=== PATIENT | female | born 1945 | race Caucasian/White ===

== ENCOUNTER → 2023-11-14 08:53 | Outpatient (REF) | payer MEDICARE, BC, SELFPAY ==
[2023-11-14 12:01] LABS: ALT (SGPT) 22 U/L (0-35); AST (SGOT) 35 U/L (14-36); HDL Cholesterol 84 mg/dl; LDL Cholesterol, Calculated 45 mg/dl; Total Cholesterol 147 mg/dl (50-199); Triglyceride 91 mg/dl (10-149); Very Low Density Lipoprotein 18 mg/dl (0-30)
[2023-11-14 12:43] LABS: Vitamin B12 626 pg/ml (239-931)
== END ==
LOC: HWLAB 08:53
PROVIDERS: ATTENDING PHYSICIAN Nurse Practitioner Family
DX: E78.5 Hyperlipidemia, unspecified (principal); R29.818 Other symptoms and signs involving the nervous system
CPT/HCPCS: 36415; 80061; 82607; 84450; 84460

== ENCOUNTER 2024-04-25 06:08 | Day surgery (SDC) | payer MEDICARE, BC, SELFPAY ==
--- NOTE | 2024-04-09 09:22 | CM ---
Addendum entered by Sharee Vigil 04/18/24 09:53:
Spoke again with patient. She has obtained a commode and hip kit. Her walker does have wheels and she was reminded to bring it into the hospital on the day of surgery. She is now going to [facility] and has her first appointment scheduled for
Tuesday, 04/30 (she has a prescription for this).
Original Note:
Patient is scheduled for an elective L THR on 04/25/24- she is a same day patient. Spoke with patient prior to surgery. Introduced role of Orthopedic Navigator. Patient reports that she lives with her in a two story home. There are three
steps to enter and a flight of steps to the second floor. There is a powder room on the first floor. She currently functions independently. She has a cane and a walker (she is not sure if it has wheels). She has never had VN services. PCP is
Tien Medley.
Discussed orthopedic program and post surgical plans. Reviewed that she will have VN services initially (medicare.gov website and ratings reviewed) and will then start outpatient PT. Patient selects [facility]N (face sheet faxed to [facility]N to facilitate
confirmation of benefits) for her home care needs and will go to [facility] for outpatient PT.
Patient is in agreement with plan and states that her will be home with her.
Patient will complete online education.
Plan: Orthopedic Navigator will remain available to assist with the care of patient and will reassess discharge needs after surgery.
[2024-04-12 14:13] VITALS: BMI 24.5
[2024-04-12 14:45] LABS: Hematocrit 38.4 % (37.0-47.0); Hemoglobin 13.3 g/dL (12.0-16.0); Mean Corp Hgb Conc. 34.6 g/dL (33.0-37.0); Mean Corpuscular Hgb 31.3 pg (27.0-31.0); Mean Corpuscular Volume 90.4 fL (81.0-99.0); Mean Platelet Volume 9.9 fL (7.4-10.4); Platelet Count 200 10^3/uL (130-400); Red Blood Cell Count 4.25 10^6/uL (4.20-5.40); Red Cell Dist. Width 13.2 % (11.5-14.5)
[2024-04-12 15:14] LABS: ALT (SGPT) 21 U/L (0-35); AST (SGOT) 32 U/L (14-36); Albumin 4.7 g/dl (3.5-5.0); Alkaline Phosphatase 55 U/L (38-126); Blood Urea Nitrogen 20 mg/dl (7-17); Carbon Dioxide 27 mmol/L (22-30); Chloride 100 mmol/L (98-107); Estimated Creatinine Clearance 54 ml/min; Glucose 88 mg/dl (70-99); Potassium 4.7 mmol/L (3.5-5.1); Sodium 135 mmol/L (135-145); Total Protein 6.9 g/dl (6.3-8.2); eGFR > 60.00
[2024-04-13 09:59] LABS: Glycohemoglobin (HgbA1c) 5.4 % (4.0-5.6)
[2024-04-20 12:22] VITALS: BMI 24.5
[2024-04-25] VITALS (25 sets, daily range): BP systolic 94–155; BP diastolic 52–98; PULSE 54–56; O2SAT 100; BMI 24.5
[2024-04-25] MEDS: NORMOSOL-R 1000 IV ×2 (06:27→10:21)
[2024-04-25] MEDS: TYLENOL 650 MG PO (06:31)
[2024-04-25] MEDS: CELEBREX 200 MG PO (06:31)
[2024-04-25] MEDS: DILAUDID 0.25 MG IV (09:32)
[2024-04-25] MEDS: CYKLOKAPRON 1950 MG PO (10:26)
[2024-04-25] MEDS: ANCEF 5 IV (11:26)
[2024-04-25] MEDS: ROXICODONE 5 MG PO (12:15)
[2024-04-25] MEDS: COMPAZINE 10 MG IV (12:51)
[2024-04-25] MEDS: TORADOL 15 MG IV (15:05)
== END 2024-04-25 15:45 | disposition home or self-care (01) ==
LOC: SDS 06:08
PROVIDERS: ATTENDING PHYSICIAN Orthopaedic Surgery; FAMILY PHYSICIAN Nurse Practitioner Family; OTHER PHYSICIAN Internal Medicine Cardiovascular Disease
DX: M16.52 Unilateral post-traumatic osteoarthritis, left hip (principal)
CPT/HCPCS: 27130; C1713; 36415; 73502; 80053; 83036; 85027; 87070; 97116; 97161; 97530; C1776

== ENCOUNTER 2024-05-14 16:00 | Inpatient (IN) | payer MEDICARE, BC, SELFPAY ==
[2024-05-14] VITALS (10 sets, daily range): BP systolic 120–160; BP diastolic 70–82
--- NOTE | 2024-05-14 11:19 | ED.GENMED ---
History of Present Illness
General
Chief Complaint: Post Operative Problem(s)
Source: patient
Time Seen by Provider: 05/14/24 11:00
History of Present Illness
History of Present Illness:
79-year-old female status post hip replacement approximately 2-1/2 weeks ago presents emergency department with complaint left hip pain. She was standing with her cane, turned to the side and heard a 'sound' associated with pain and inability to
bear weight. Medics were called. Patient states she does not have pain unless she moves. She denies other complaints or injury.
Past History
Past History
ED Past Medical History: Other (Breast cancer)
Social History
Tobacco: Non-smoker
Alcohol: None
Drug: None
Personal:
Living: with family
Family History
Family History: Other (dad with mi @ 60 )
Phy Exam
Physical Exam
Physical Exam:
GENERAL: Alert , in no apparent distress
EYE: pupils equal and reactive
NECK: Supple, no significant adenopathy.
ENT: o/p clr, mmm.
CARDIAC: Regular rate and rhythm .
LUNGS: Clear breath sounds bilaterally, no acute respiratory distress, no wheezes/rales/rhonchi
ABDOMEN: Soft, without focal tenderness, no r/g, no cvat
NEUROLOGICAL: Alert and oriented, no focal neuro deficits
SKIN: Warm and dry, skin intact.
MUSCULOSKELETAL: No edema, well perfused. Left lower extremity shortened and slightly internally rotated, limited range of motion due to pain, neurovascularly intact, normal cap refill
PSYCH: Normal and appropriate interaction.
Course
Orders/Labs/Results
Orders:
Orders
05/14/24 11:17
Hip, Left 2-3 Views [CR Hip - LT w/wo Pel 2-3 Vw*] Urgent
Comment:
Reason For Exam: SUSPECT DISLOCATION
Include a pelvis x-ray?: Yes
05/14/24 11:18
Morphine Sulfate 4 mg IV NOW STA
05/14/24 13:10
Morphine Sulfate 4 mg IV NOW STA
05/14/24 14:44
Case Management Consult ONCE
Case Management Consult: Discharge Planning
PT Consult [Pt Eval And Treat] Urgent
Activity Level: With Assistance
Vital Signs
Initial and Last Documented VS:
Initial Vital Signs
Temp Pulse Resp BP Pulse Ox
98.2 F 64 16 145/78 99
05/14/24 11:01 05/14/24 11:01 05/14/24 11:01 05/14/24 11:01 05/14/24 11:01
Last Documented Vital Signs
Temp Pulse Resp BP Pulse Ox
98.2 F 64 16 138/80 96
05/14/24 11:01 05/14/24 11:01 05/14/24 11:01 05/14/24 12:00 05/14/24 12:15
Update Note
Update Note:
Patient presents to the Emergency Department with __left hip pain
Number and Complexity of Problems Addressed at the Encounter
� Chronic conditions affecting care:
� Acute Exacerbation and/or Progression of Chronic Illness:
� Differential Diagnosis includes: But not limited to strain, dislocation, fracture, etc.
Amount and/or Complexity of Data to be Reviewed and Analyzed
� I performed an independent evaluation of and my interpretation is:
EKG:
CT:
Xrays: Greater troches fracture, new, no dislocation
Laboratory Studies:
Other:
� Review of other/old records reveals:
� Clinical information was obtained by an independent historian:
� Prescriptions/Medications Considered but not given:
� Further testing considered but not performed:
Risk of Complications and/or Morbidity or Mortality of Patient Management
� Social determinants of health affecting care:
� Discussion with other providers (PCP, Hospitalists, Consultants, etc):
� Escalation of care including admission/observation vs risk of discharge considered: 2:45 PM Case discussed with orthopedics, Dr. Damien Cifuentes, x-rays reviewed, new troches fracture noted. Recommendations are nonoperative
toe-touch weightbearing. Aware patient will need to be admitted/unable to go home given level of pain, recommend hospitalist, he has been notified. In meantime case management and PT also notified.
ED Attending Note
-
Portions of this chart may have been created with voice recognition software.� Occasional wrong word or��sound alike� substitutions may have occurred due to the inherent limitations of voice recognition software.
Discharge Plan
Departure
Patient Disposition: Admit
Date of Disposition: 05/14/24
Time of Disposition: 14:44
Admit to: Med/Surg
Presentation/result/management discussed w/ accepting MD/DO: Hospitalist
Condition: Fair
Discharge Problem:
Closed hip fracture
Prescriptions:
No Action
biotin 5 MG capsule
5 mg PO DAILY
multivitamin with folic acid [Tab-A-Katelyn] 1 TABLET tablet
1 tab PO DAILY
rosuvastatin 10 mg Tablet
10 mg PO HS
zoledronic ekgp-akzwcbmk-akbvc [Reclast] 5 mg/100 mL Piggyback
5 mg IV DIRECTED
Rx Instructions:
Annual Infusion;
Next dose 06/2024
cholecalciferol (vitamin D3) [Vitamin D3] 125 mcg (5,000 unit) Tablet
125 mcg PO DAILY
Aimovig Autoinjector 140 mg/mL Auto-Injector
140 mg SC QMONTH
aspirin 325 mg Tablet
325 mg PO DAILY
Patient Comments:
*
ondansetron HCl 4 mg Tablet
4 mg PO Q6H PRN (Reason: post-op nausea)
Patient Comments:
*
dexamethasone 4 mg Tablet
4 mg PO Q12H
Patient Comments:
*
mupirocin 2 % Ointment
1 applic TOPICAL BID
Patient Comments:
started treatment tuesday04/22/24 and completed BID
celecoxib 100 mg Capsule
100 mg PO BID
Patient Comments:
*
oxycodone 5 mg Tablet
5 - 10 mg PO Q6H PRN (Reason: post-op pain)
Patient Comments:
*
acetaminophen 500 mg Tablet
500 mg PO Q6H PRN (Reason: pain)
sennosides [senna] 8.6 mg tablet
17.2 mg PO BID 10 Days Qty: 40 0RF
docusate sodium [Colace] 100 mg capsule
200 mg PO BID 10 Days Qty: 40 0RF
metoprolol succinate 25 mg Tablet Extended Release 24 Hr
25 mg PO HS Qty: 0 0RF
Rx Instructions:
Hold for systolic pressure < 120, diastolic pressure < 80
Referrals:
Max Medley CRNP [Family Provider] -
Interventions
Interventions:
*Risk Screen - Suicide Last Done: 05/14/24 11:06
*Neglect/Abuse Screening Last Done: 05/14/24 11:06
*ED COVID-19 Vaccine History Last Done: 05/14/24 11:01
ED-Skin Assessment Last Done: 05/14/24 12:00
Discharge Date and Time
Print Language: THAI
[2024-05-14] MEDS: MORPHINE SULFATE 4 MG IV ×3 (11:23→16:39)
--- NOTE | 2024-05-14 14:41 | CON.ORTHO ---
Consultation
-
Date/Time Consultation Requested: 05/14/2024; time unknown
Date/Time Consultation Performed: 05/14/2024; 1430
Requesting Provider: Dr. Sara Culver
Performing Provider: Dottie Cabrera PA-C for Dr. Joe Mcneill
Reason for Consultation: Left periprosthetic greater trochanter fracture
Consultation - Orthopedics
History
Ms. Alonzo is a 79 yo F with PMH of osteoporosis, known to me, 2 weeks status post left total hip arthroplasty. She was doing well in her recovery over the last few weeks, but noticed increased pain in her hip over the last few days. She reports
she turned to move away from her bathroom counter top this morning when she felt a pop in her hip, and experienced immediate onset of pain. She was unable to bear weight on the left thereafter. She presented to ED via EMS where x-rays revealed a
periprosthetic greater trochanter fracture. She is resting comfortably in bed at present, but does endorse lateral pain with movement of the hip. She is accompanied by her today.
Allergies / Home Medications
Allergy/AdvReac Type Severity Reaction Status Date / Time
Penicillins Allergy Unknown Hematuria Verified 04/25/24 06:09
latex Allergy Oral and Verified 04/25/24 06:09
Throat
lesions
�Medication �Instructions �Recorded
biotin 5 mg capsule 5 mg PO DAILY 10/08/16
multivitamin with folic acid 400 1 tab PO DAILY 10/08/16
mcg tablet (Tab-A-Katelyn)
cholecalciferol (vitamin D3) 125 125 mcg PO DAILY 04/20/24
mcg (5,000 unit) tablet (Vitamin
D3)
erenumab-aooe 140 mg/mL 140 mg SC QMONTH 04/20/24
subcutaneous auto-injector
(Aimovig Autoinjector)
rosuvastatin 10 mg tablet 10 mg PO HS 04/20/24
zoledronic acid 5 mg/100 mL in 5 mg IV DIRECTED 04/20/24
mannitol 5 %-water intravenous
piggybck (Reclast)
aspirin 325 mg tablet 325 mg PO DAILY post-op 04/24/24
celecoxib 100 mg capsule 100 mg PO BID post-op; with food 04/24/24
dexamethasone 4 mg tablet 4 mg PO Q12H post-op for 3 days 04/24/24
mupirocin 2 % topical ointment 1 applic topical BID 04/24/24
ondansetron HCl 4 mg tablet 4 mg PO Q6H PRN post-op nausea 04/24/24
oxycodone 5 mg tablet 5 - 10 mg PO Q6H PRN post-op pain 04/24/24
acetaminophen 500 mg tablet 500 mg PO Q6H PRN pain 04/25/24
docusate sodium 100 mg capsule 200 mg (2 x 100 mg) PO BID 10 days 04/25/24
(Colace) #40 caps
metoprolol succinate 25 mg 25 mg PO HS #0 tabs 04/25/24
tablet,extended release 24 hr
sennosides 8.6 mg tablet (senna) 17.2 mg (2 x 8.6 mg) PO BID 10 04/25/24
days #40 tabs
Vital Signs / Lab Results
Temp Pulse Resp BP Pulse Ox
98.2 F 64 16 138/80 96
05/14/24 11:01 05/14/24 11:01 05/14/24 11:01 05/14/24 12:00 05/14/24 12:15
XR Left Hip 05/14/2024 Impression:
1. ACUTE OBLIQUELY ORIENTED NONDISPLACED FRACTURE of the LEFT GREATER TROCHANTER located at the site of a cerclage band surrounding the intertrochanteric proximal femur.
2. Left total hip arthroplasty in place.
Directed exam of the left lower extremity reveals healing surgical incision without signs of erythema, drainage or dehiscence. Expected post-operative edema and ecchymosis about the left hip. Tenderness to palpation over the greater trochanter. Pain
with movement of the hip. Calf soft and nontender. Patient able to wiggle toes, plantar and dorsiflex ankle. Neurovascularly intact distally.
Assessment / Plan
Left periprosthetic greater trochanter fracture; recent total hip arthroplasty under the direction of Dr. Baez
--Unfortunately, Ms. Alonzo sustained a periprosthetic greater trochanter fracture. Thankfully, her RHYS remains well fixed, and the fracture is in appropriate alignment to proceed with non-operative management. Patient may have diet.
--Recommend TDWB to LLE with walker. Maintain posterior THPs. We appreciate input from PT/OT.
--Patient may benefit from SNF placement. Recommend case management consult.
--Pain controlled with current regimen. Transition to oral medications when able.
--ASA 325 mg daily for DVT ppx.
--Please reach out with any additional orthopedic questions or concerns. Orthopedics will continue to follow along for now.
--- NOTE | 2024-05-14 15:18 | HPS.HSE ---
Family Physician
-
Family Physician: DUSTIN Irene
Chief Complaint
-
Left hip pain with inability to bear weight
History of Present Illness
79-year-old female who reports she was standing with her cane when she turned to her side and heard a sound associated with pain in her left hip with inability to bear weight. In the ER she was noted to have a left trochanteric fracture. She
reports pain in her left hip during my exam status post physical therapy and manipulation extension of left leg.
She is status post conversion of previous surgery left total hip arthroplasty with removal of buried implant screws and left hip 04/25/[address] Baez.
She denies headache, neck pain, fever, chills, chest pain, palpitations, shortness breath, cough, abdominal pain, nausea, vomit, diarrhea, urinary symptoms.
She has past medical history asthma, HTN, HLD, breast cancer bilateral mastectomy 2012 with reconstructive repair/BRCA gene positive, dilated aortic root, fracture left hip 2003 with repair, anxiety, osteoporosis, GERD,
Medical History
Past Medical History
Past Medical History: Reports Other
Additional Past Medical History:
asthma as child
breast cancer bilateral mastectomy 2012 with reconstructive repair/BRCA gene positive,
dilated aortic root 2.9 cm per pt
fracture left hip 2003 with repair
anxiety
osteoporosis
GERD
Past Surgical History: Reports Other
Additional Past Surgical History:
Laparoscopic incarcerated left lower quadrant hernia repair
Sinus surgery
Bilateral salpingo oophorectomy
Breast cancer with bilateral mastectomy 2012 and reconstructive repair
Social History
Tobacco: Non-smoker
Alcohol: Occasional
Drug: None
Personal:
Living: With Family ()
Employment: Retired
Family History
Family History: Other (Father leukemia, Hx [place], mother history of HLD)
Allergies / Home Medications
Allergies reflects when Allergies were last updated in [employer].
Home Medications with original date entered in [employer]
Allergy/Medication List:
Allergies
Allergy/AdvReac Type Severity Reaction Status Date / Time
Penicillins Allergy Unknown Hematuria Verified 04/25/24 06:09
latex Allergy Oral and Verified 04/25/24 06:09
Throat
lesions
Home Medications
erenumab-aooe 140 mg/mL subcutaneous auto-injector (Aimovig Autoinjector) 140 mg SC QMONTH 04/20/24
rosuvastatin 10 mg tablet 10 mg PO HS 04/20/24
aspirin 325 mg tablet 325 mg PO DAILY post-op 04/24/24
metoprolol succinate 25 mg tablet,extended release 24 hr 25 mg PO HS #0 tabs 04/25/24
ibuprofen 200 mg tablet (Advil) 200 mg PO Q6HPRN PRN mild pain 05/14/24
Review of Systems
-
History Source: Patient and Family ()
A 12 point ROS was completed and negative except as noted: Yes
Constitutional: Denies Fever or Chills
EENT: Denies Sore Throat or Runny Nose
Respiratory: Denies Cough or Trouble Breathing
Cardiac: Denies Chest Pain, Diaphoresis, Palpitations or Syncope
Abdomen/GI: Denies Abdominal Pain, Nausea, Vomiting, Diarrhea, Constipated, Bloody Stools or Black Stools
: Denies Dysuria, Frequency, Flank Pain, Incontinence or Difficulty Voiding
Musculoskeletal: Reports Joint Pain (Left hip); Denies Edema
Skin: Reports Other (Left hip postsurgical site intact no surrounding erythema or drainage); Denies Itching or Rash
Neurological: Denies Dizzy or Headache
Endocrine: Reports No Symptoms
Hematologic/Lymphatic: Reports No Symptoms
Psych: Reports Calm
Physical Exam
Vital Signs
Vital Signs
Temp Pulse Resp BP Pulse Ox
98.2 F 64 16 138/80 96
05/14/24 11:01 05/14/24 11:01 05/14/24 11:01 05/14/24 12:00 05/14/24 12:15
Physical Exam
General: Pain (Post physical therapy manipulation of leg); No Fever or Chills
HEENT: NormoCephalic, Anicteric, Moist mucous membranes, PERRLA, [place] Conjunctivae and No Ptosis
Respiratory: Clear; No Wheezes, Rales or Rhonchi
Cardiac: S1/S2 and Regular Rhythm; No Murmur, Rub, Gallop or Peripheral Edema
GI: Soft, Non Tender, Non Distended, Normal Bowel Sounds and No Hepatosplenomegaly
Rectal: Deferred by Provider
Genito-urinary: Deferred by me
Musculoskeletal: No Clubbing, No Cyanosis, No Edema and Other (Left hip postsurgical site intact no surrounding erythema or drainage)
Skin: Warm and Dry; No Rash
Neuro: AO x 3, Nonfocal/grossly intact, Cranial Nerves Intact and No Sensory Deficits; No Slurred Speech, Facial Droop or Tremors
Psych: Calm
Data Reviewed
-
Diagnostic Radiology: Report Reviewed by me
Lab Data: Labs Reviewed by me
Impression/Plan
-
Impression/plan:
Admit to [facility]
# Atraumatic�new left trochanteric fracture left hip patient status post left hip revision total hip arthroplasty 04/25/[address] Baez
#Hx fracture left hip 2003 with repair
-Nonoperative per Ortho
-Consult Ortho
-Pain control Tylenol,oxycodone, mod pain, morphine severe pain, as needed bowel regimen
-Weight-bear with walker
-PT/OT/case management consult for SNF placement
-Aspirin 325 for DVT prophylaxis
-Check CBC with differential, CMP on admit
X-ray left hip 05/14/2024: Acute nondisplaced fracture of the left greater trochanter located at the site of a cerclage band surrounding the intertrochanteric proximal femur
Left total hip arthroplasty in place
#HTN�benign
-BP 138/80
-Continue metoprolol succinate 25 mg at bedtime
#HLD
-Continue Crestor 10 mg at bedtime
#Asthma as Child -no acute exacerbation
-No reported inhalers
#Anxiety
-No reported meds
#Osteoporosis
- Gets Yearly Reclast injection is due June 2024
#GERD
-No reported meds
#Headaches
Gets monthly aimovig
Other PMH:
Breast cancer bilateral mastectomy 2012 with reconstructive repair/BRCA gene positive
Dilated aortic root 2.9 cm according to pt
DVT prophylaxis
Aspirin 325 mg daily
Full code
[2024-05-14] MEDS: ROXICODONE 5 MG PO ×2 (16:38→21:02)
[2024-05-14] MEDS: ZOFRAN 4 MG IV (16:39)
--- NOTE | 2024-05-14 17:25 | PTCARENOTE ---
Pt received from the Ed via stretcher. Transport was w/o incident. Pt is AAOX3, HRR, lungs are clear. Left hip with 1+ Edema, Bruised and sl internally rotated. Vss, pt is afebrile, Pt and Pt's instructed on plan of care. Both Pt and
verbalized understanding of instructions. [facility] is within reach.
--- NOTE | 2024-05-14 17:33 | W.PN.UPDATE ---
Update Note
Progress Note Update
This note serves as an addendum to the H&P by DUSTIN Walls, May 14, 2024.
History of Presenting Illness
79-year-old female with past medical history of asthma, HTN, HLD, breast cancer bilateral mastectomy 2012 with reconstructive repair/BRCA gene positive, dilated aortic root, fracture left hip 2003 with repair, anxiety, osteoporosis and GERD,
presented after pain in her left hip. In the ER she was noted to have a left trochanteric fracture. She is status post conversion of previous surgery left total hip arthroplasty with removal of buried implant screws and left hip 04/25/2024 by
Sasha.
Physical Exam
General: Not in acute distress
HEENT: Normocephalic, Moist mucous membranes
Respiratory: CTAB
Cardiac: S1/S2 and Regular Rhythm
GI: Soft, Non Tender, Non Distended, Normal Bowel Sounds
Musculoskeletal: No Cyanosis, No Edema and Other (Left hip postsurgical site intact no surrounding erythema or drainage). Severe pain with any movement of the LLE.
Skin: Warm and Dry
Neuro: AAO x 3, Nonfocal/grossly intact, Cranial Nerves Intact and No Sensory Deficits
Psych: Calm
Assessment/Plan
# Atraumatic�new left trochanteric fracture left hip patient status post left hip revision total hip arthroplasty 04/25/[address] Baez
#Hx fracture left hip 2003 with repair
-Nonoperative per Ortho
-Consult Ortho, recommendations appreciated ortho recommended TDWB to LLE with walker and to maintain posterior THPs.
-Pain control Tylenol,oxycodone, dilaudid
-Monitor for any constipation
-Weight-bear with walker
-PT/OT/case management consult for SNF placement
-Aspirin 325 for DVT prophylaxis
-Check labs: CBC with differential, CMP on admit
#HTN�benign
-BP 138/80
-Continue metoprolol succinate 25 mg at bedtime
#HLD
-Continue Crestor 10 mg at bedtime
#Asthma as Child -no acute exacerbation
-No reported inhalers
#Anxiety
-No reported meds
#Osteoporosis
- Gets Yearly Reclast injection is due June 2024
#GERD
-No reported meds
#Headaches
Gets monthly aimovig
Other PMH:
Breast cancer bilateral mastectomy 2012 with reconstructive repair/BRCA gene positive
Dilated aortic root 2.9 cm according to pt
DVT prophylaxis
Aspirin 325 mg daily
Full code
[2024-05-14] MEDS: LIDOCAINE 4% PATCH 1 PATCH TOPICAL (18:30)
[2024-05-14] MEDS: TYLENOL 1000 MG PO ×2 (18:31→23:04)
[2024-05-14 18:34] LABS: % Basophils 0.4 % (0-2); % Immature Granulocytes 0.3 % (0-0.5); % Lymphocytes 5.9 % (20.5-51.1); % Monocytes 4.7 % (1.7-9.3); % Neutrophils 87.7 % (42.2-75.2); Absolute Eosinophils 0.1 10^3/uL (0-0.7); Absolute Lymphocytes 0.5 10^3/uL (1.2-3.4); Absolute Monocytes 0.4 10^3/uL (0.1-0.6); Absolute Neutrophils 6.9 10^3/uL (1.4-6.5); Hemoglobin 10.7 g/dL (12.0-16.0); Mean Corp Hgb Conc. 34.5 g/dL (33.0-37.0); Mean Corpuscular Hgb 30.9 pg (27.0-31.0); Mean Corpuscular Volume 89.6 fL (81.0-99.0); Mean Platelet Volume 8.6 fL (7.4-10.4); Nucleated Red Blood Cells % 0 %; Platelet Count 277 10^3/uL (130-400); Red Blood Cell Count 3.46 10^6/uL (4.20-5.40); Red Cell Dist. Width 13.4 % (11.5-14.5); White Blood Cell Count 7.9 10^3/uL (4.8-10.8)
[2024-05-14 18:49] LABS: ALT (SGPT) 25 U/L (0-35); AST (SGOT) 33 U/L (14-36); Albumin 2.5 g/dl (3.5-5.0); Alkaline Phosphatase 102 U/L (38-126); Blood Urea Nitrogen 20 mg/dl (7-17); Calcium 9.3 mg/dl (8.4-10.2); Carbon Dioxide 24 mmol/L (22-30); Chloride 103 mmol/L (98-107); Estimated Creatinine Clearance 54 ml/min; Glucose 109 mg/dl (70-99); Potassium 3.9 mmol/L (3.5-5.1); Sodium 133 mmol/L (135-145); Total Bilirubin 0.8 mg/dl (0.2-1.3); eGFR > 60.00
[2024-05-14] MEDS: CRESTOR 10 MG PO (21:01)
[2024-05-14] MEDS: TOPROL XL 25 MG PO (21:02)
[2024-05-15] MEDS: ROXICODONE 5 MG PO ×3 (01:55→20:40)
[2024-05-15 02:09] LABS: Urine Albumin Negative (Neg - Trace); Urine Bilirubin Negative (Negative); Urine Character Clear (Clear); Urine Color Yellow; Urine Glucose Negative (Negative); Urine Ketone 1+ (Negative); Urine Leukocyte Negative (Negative); Urine Nitrite Negative (Negative); Urine Occult Blood Negative (Negative); Urine Specific Gravity 1.015 (<1.030); Urine Urobilinogen Negative (Neg - 1+); Urine pH 6.5 (5.0-9.0)
[2024-05-15] MEDS: DILAUDID 0.5 MG IV (05:27)
--- NOTE | 2024-05-15 06:57 | W.PN.UPDATE ---
Update Note
Progress Note Update
Patient seen and evaluated by orthopedic surgery this morning. She is lying comfortably in bed, does not appear to be in any acute distress. She does report increased pain with movement.
A & P: Left periprosthetic greater trochanteric fracture; recent total hip arthroplasty under the direction of Dr. Baez.
- Recommend TDWB to LLE with walker. Maintain posterior THPs. We appreciate input from PT/OT. Avoid active abduction and passive adduction.
- Patient may benefit from SNF placement. Recommend case management consult.
- Pain control per primary team.
- ASA 325mg daily for DVT ppx.
- Orthopedic surgery will continue to follow along while in house.
[2024-05-15 07:37] VITALS: BP 113/60
[2024-05-15 08:34] LABS: % Basophils 0.2 % (0-2); % Eosinophils 1.9 % (0-6); % Immature Granulocytes 0.5 % (0-0.5); % Lymphocytes 12.9 % (20.5-51.1); % Monocytes 7.4 % (1.7-9.3); % Neutrophils 77.1 % (42.2-75.2); Absolute Eosinophils 0.1 10^3/uL (0-0.7); Absolute Lymphocytes 0.8 10^3/uL (1.2-3.4); Absolute Monocytes 0.5 10^3/uL (0.1-0.6); Absolute Neutrophils 4.9 10^3/uL (1.4-6.5); Hematocrit 28.4 % (37.0-47.0); Hemoglobin 9.8 g/dL (12.0-16.0); Mean Corp Hgb Conc. 34.5 g/dL (33.0-37.0); Mean Corpuscular Hgb 31.4 pg (27.0-31.0); Mean Platelet Volume 9.3 fL (7.4-10.4); Nucleated Red Blood Cells % 0 %; Platelet Count 264 10^3/uL (130-400); Red Blood Cell Count 3.12 10^6/uL (4.20-5.40); Red Cell Dist. Width 13.9 % (11.5-14.5); White Blood Cell Count 6.4 10^3/uL (4.8-10.8)
[2024-05-15] MEDS: ASPIRIN 325 MG PO (08:39)
[2024-05-15] MEDS: TYLENOL 1000 MG PO ×3 (08:39→23:17)
[2024-05-15] MEDS: LIDOCAINE 4% PATCH 1 PATCH TOPICAL (08:40)
[2024-05-15 08:53] LABS: Blood Urea Nitrogen 23 mg/dl (7-17); Calcium 8.9 mg/dl (8.4-10.2); Carbon Dioxide 22 mmol/L (22-30); Chloride 100 mmol/L (98-107); Estimated Creatinine Clearance 64 ml/min; Glucose 102 mg/dl (70-99); Potassium 4.2 mmol/L (3.5-5.1); Sodium 130 mmol/L (135-145); eGFR > 60.00
--- NOTE | 2024-05-15 10:31 | CM ---
Addendum entered by Amelia Blandon 05/15/24 15:23:
Patient seen with spouse, discussed PT/OT recommending SNF. [facility]ing referrals to [facility], [facility], [facility], [facility], [facility]. [facility].
Plan; SNF pending accepting facility.
Original Note:
Patient seen bedside, initial assessment completed. Patient reports she lives with her in a two story home, 3 steps to enter, full flight up stairs up to bedroom/full bathroom, powder room on first floor. Patient reports she is about 2.5
weeks post hip replacement, was working with [facility] and then going to outpatient therapy [facility]. Patient reports she was using a walker and cane post surgeryu, previously did not use any DME and was very active. Patient tearful
throughout assessment, would like to return home with services but aware that will likely need rehab. Patient provided with local SNF resources. Patient PCP Max Medley, pharmacy [facility], confirms prescription coverage.
Patient denies food, housing/utility, transportation insecurities at home. CM will watch for PT/OT recommendations for discharge plans.
Plan; will depend on PT/OT evals.
[2024-05-15 11:38] VITALS: BP 163/76; PULSE 70
[2024-05-15 11:40] VITALS: BP 163/76; PULSE 61
--- NOTE | 2024-05-15 11:48 | W.PN.HOSP.TC ---
Today's Communication/Plan
-
Pain control
PT/OT
SNF Placement
Assessment / Plan
Assessment / Plan
Physical Exam
General: Not in acute distress
HEENT: Normocephalic, Moist mucous membranes
Respiratory: CTAB
Cardiac: S1/S2 and Regular Rhythm
GI: Soft, Non Tender, Non Distended, Normal Bowel Sounds
Musculoskeletal: No Cyanosis, No Edema. Severe pain with any movement of the LLE.
Skin: Warm and Dry
Neuro: AAO x 3, Nonfocal/grossly intact, Cranial Nerves Intact and No Sensory Deficits
Psych: Calm
Assessment/Plan
#Left periprosthetic greater trochanteric fracture; recent total hip arthroplasty under the direction of Dr. Baez.
#Hx fracture left hip 2003 with repair
-Nonoperative per Ortho
-Consult Ortho, recommendations appreciated
-Recommend TDWB to LLE with walker. Maintain posterior THPs. We appreciate input from PT/OT. Avoid active abduction and passive adduction.
-Pain control Tylenol, Oxycodone, Dilaudid
-Monitor for any constipation
-Weight-bear with walker
-PT/OT/case management consult for SNF placement
-Aspirin 325 for DVT prophylaxis
-SNF placement
-ASA 325mg daily for DVT prophylaxis
#HTN�benign
-BP 138/80
-Continue metoprolol succinate 25 mg at bedtime
#HLD
-Continue Crestor 10 mg at bedtime
#Asthma as Child -no acute exacerbation
-No reported inhalers
#Anxiety
-No reported meds
#Osteoporosis
- Gets Yearly Reclast injection is due June 2024
#GERD
-No reported medications
#Headaches
Gets monthly aimovig
Other PMH:
Breast cancer bilateral mastectomy 2012 with reconstructive repair/BRCA gene positive
Dilated aortic root 2.9 cm according to pt
DVT Prophylaxis: Aspirin 325 mg daily
Code Status: Full code
Anticipated Discharge: Within 24 hours
Subjective/Interval History
-
Date of Service: May 15, 2024
Patient was seen and examined. She reported continued severe pain in her left leg with any kind of movement.
Objective Data
-
Labs:
Laboratory Results
05/15/24
06:46
WBC 6.4
Hgb 9.8 L
Hct 28.4 L
Plt Count 264
Sodium 130 L
Potassium 4.2
Chloride 100
Carbon Dioxide 22
BUN 23 H
Creatinine 0.6
Glucose 102 H
Calcium 8.9
Vital Signs:
Vital Signs
Temp Pulse Resp BP Pulse Ox
98.5 F 56 17 113/60 96
05/15/24 07:37 05/15/24 07:37 05/15/24 07:37 05/15/24 07:37 05/15/24 07:37
I&O
05/14/24 05/15/24 05/16/24
06:59 06:59 06:59
Intake Total 480 / 480
Output Total 500 / 500
Balance -20 / -20
--- NOTE | 2024-05-15 13:54 | PN.CDI ---
CDI
- -
CDI:
Physician Documentation Request
Admit Date: 05/14/24 16:00
Dear Doctor Kina,
Clinical Indicators:
Patient admitted with Left periprosthetic greater trochanteric fracture.
Sodium levels:
05/14/24 05/15/24
18:18 06:46
Sodium 133 L 130 L
Based on the above, could you clarify in the progress notes, the appropriate diagnosis, if significant, that supports the above abnormalities and additional evaluation, monitoring and/or treatment rendered:
Hyponatremia
Abnormal lab value, clinically insignificant
Other
Use of terms such as suspected, likely, concern for, or probable (associated with a specific diagnosis that is being evaluated, monitored, or treated as if it exists) are acceptable and can be coded in the inpatient setting, when documented at the
time of discharge.
Thank you,
Rebecca Echevarria RN BSN
CDI Specialist
available via tiger text
Please use your independent medical judgment in providing your response.
--- NOTE | 2024-05-15 14:13 | PN.CDI ---
CDI
- -
CDI:
Physician Documentation Request
Admit Date: 05/14/24 16:00
Dear Doctor Kina,
Clinical Indicators:
Patient admitted with Left periprosthetic greater trochanteric fracture.
05/14 H & P, 'Atraumatic�new left trochanteric fracture left hip patient'
05/14 Ortho consult, 'She reports she turned to move away from her bathroom counter top this morning when she felt a pop in her hip, and experienced immediate onset of pain. She was unable to bear weight on the left thereafter.'
05/15 PN, 'Osteoporosis- Gets Yearly Reclast injection is due June 2024'
Please clarify the etiology of the left periprosthetic greater trochanter fracture:
Pathologic due to osteoporosis
Atraumatic only
Other
Use of terms such as suspected, likely, concern for, or probable (associated with a specific diagnosis that is being evaluated, monitored, or treated as if it exists) are acceptable and can be coded in the inpatient setting, when documented at the
time of discharge.
Thank you,
Rebecca Echevarria RN BSN
CDI Specialist
available via tiger text
Please use your independent medical judgment in providing your response.
[2024-05-15 15:13] VITALS: BP 122/69
[2024-05-15] MEDS: ZOFRAN 4 MG IV (17:27)
[2024-05-15] MEDS: DILAUDID IV (20:02)
[2024-05-15] MEDS: CRESTOR 10 MG PO (21:49)
[2024-05-15] MEDS: TOPROL XL 25 MG PO (21:49)
[2024-05-15 23:54] VITALS: BP 134/64
[2024-05-16] MEDS: DILAUDID IV (00:31)
[2024-05-16] MEDS: DILAUDID 0.5 MG IV ×2 (01:02→07:49)
[2024-05-16 07:15] VITALS: BP 123/60
[2024-05-16] MEDS: TYLENOL 1000 MG PO ×2 (07:51→23:08)
[2024-05-16] MEDS: ASPIRIN 325 MG PO (07:52)
[2024-05-16] MEDS: LIDOCAINE 4% PATCH 1 PATCH TOPICAL (07:52)
--- NOTE | 2024-05-16 08:54 | W.PN.UPDATE ---
Update Note
Progress Note Update
Pt seen this AM. No significant changes. Left periprosthetic greater trochanteric fracture; recent total hip arthroplasty under the direction of Dr. Baez.
- Recommend TDWB to LLE with walker. Maintain posterior THPs. We appreciate input from PT/OT. Avoid active abduction and passive adduction.
- Patient may benefit from SNF placement. Recommend case management consult.
- Pain control per primary team.
- ASA 325mg daily for DVT ppx.
- Orthopedic surgery will continue to follow along while in house.
--- NOTE | 2024-05-16 11:42 | W.PN.HOSP.TC ---
Today's Communication/Plan
-
Pain control
PT/OT
Placement
Assessment / Plan
Assessment / Plan
Physical Exam
General: Not in acute distress
HEENT: Normocephalic, Moist mucous membranes
Respiratory: CTAB
Cardiac: S1/S2 and Regular Rhythm
GI: Soft, Non Tender, Non Distended, Normal Bowel Sounds
Musculoskeletal: No Cyanosis, No Edema. Severe pain with any movement of the LLE.
Skin: Warm and Dry
Neuro: AAO x 3, Nonfocal/grossly intact, Cranial Nerves Intact and No Sensory Deficits
Psych: Calm
Assessment/Plan
#Left periprosthetic greater trochanteric fracture; recent total hip arthroplasty under the direction of Dr. Baez.
#Hx fracture left hip 2003 with repair
-Nonoperative per Ortho
-Consult Ortho, recommendations appreciated
-Recommend TDWB to LLE with walker. Maintain posterior THPs. PT/OT. Avoid active abduction and passive adduction.
-Pain control Tylenol, Oxycodone, Dilaudid
-Monitor for any constipation
-Weight-bear with walker
-PT/OT/case management consult for SNF placement
-Aspirin 325 for DVT prophylaxis
-SNF placement
-ASA 325mg daily for DVT prophylaxis
#HTN�benign
-BP 138/80
-Continue metoprolol succinate 25 mg at bedtime
#HLD
-Continue Crestor 10 mg at bedtime
#Asthma as Child -no acute exacerbation
-No reported inhalers
#Anxiety
-No reported meds
#Osteoporosis
- Gets Yearly Reclast injection is due June 2024
#GERD
-No reported medications
#Headaches
Gets monthly aimovig
Other PMH:
Breast cancer bilateral mastectomy 2012 with reconstructive repair/BRCA gene positive
Dilated aortic root 2.9 cm according to pt
DVT Prophylaxis: Aspirin 325 mg daily
Code Status: Full code
Anticipated Discharge: Within 24 hours
Subjective/Interval History
-
Date of Service: May 16, 2024
Patient was seen and examined. She reported urinating better today. Her pain is still severe with any movement.
Objective Data
-
Vital Signs:
Vital Signs
Temp Pulse Resp BP Pulse Ox
97.6 F 74 16 123/60 97
05/16/24 07:15 05/16/24 07:15 05/16/24 07:15 05/16/24 07:15 05/16/24 07:15
I&O
05/15/24 05/16/24 05/17/24
06:59 06:59 06:59
Intake Total 480 / 480 1080 / 1080
Output Total 500 / 500 600 / 600
Balance -20 / -20 480 / 480
[2024-05-16 12:21] VITALS: BP 120/76; PULSE 67; O2SAT 99
[2024-05-16] MEDS: MIRALAX PO (13:04)
--- NOTE | 2024-05-16 13:34 | CM ---
Reviewed PT OT with pt . She agrees she needed rehab .
She asked about [facility]. Spoke with Lamonte at [facility] she is not appropriate due to TDWB .
Pt requested SNf referals for [facility] , [facility]. All placed in care port.
PLAN Pt to SNF after located
[2024-05-16] MEDS: ROXICODONE 2.5 MG PO ×3 (13:35→21:41)
[2024-05-16] MEDS: ZOFRAN 4 MG IV ×2 (13:35→21:39)
[2024-05-16 14:12] VITALS: BP 120/76
[2024-05-16 15:10] VITALS: BP 126/71
[2024-05-16] MEDS: TYLENOL PO (16:12)
[2024-05-16] MEDS: CRESTOR 10 MG PO (21:25)
[2024-05-16] MEDS: TOPROL XL 25 MG PO (21:25)
[2024-05-16] MEDS: SENOKOT-S 1 TABLET PO (21:25)
[2024-05-16 23:00] VITALS: BP 113/65
[2024-05-17] MEDS: DILAUDID 2 MG PO ×3 (05:10→16:12)
[2024-05-17] MEDS: ZOFRAN 4 MG IV (06:33)
[2024-05-17] MEDS: DILAUDID 1 MG IV (06:35)
[2024-05-17 07:03] VITALS: BP 114/64
[2024-05-17] MEDS: TYLENOL 1000 MG PO ×2 (08:00→16:12)
[2024-05-17] MEDS: ASPIRIN 325 MG PO (08:00)
[2024-05-17] MEDS: SENOKOT-S 1 TABLET PO (08:00)
[2024-05-17] MEDS: MIRALAX 17 GRAMS PO (08:01)
[2024-05-17] MEDS: LIDOCAINE 4% PATCH 1 PATCH TOPICAL (08:01)
--- NOTE | 2024-05-17 08:28 | W.PN.UPDATE ---
Update Note
Progress Note Update
Patient reports difficult time with pain management overnight. Feels as though she went too long in between her medication doses. Received IV Dilaudid, which did help her discomfort. Will switch pain medication to Dilaudid every 4 hours scheduled
rather than as needed. She will remain TDWB with walker. Continue with PT/OT, but no active abduction or passive adduction. Per PT/OT, SNF has been recommended. She does not qualify for [facility], so appreciate case management efforts in finding a
facility. Will continue to follow while inpatient. Will need follow-up x-ray in 1 week to rule out fracture displacement.
--- NOTE | 2024-05-17 11:40 | W.PN.HOSP.TC ---
Today's Communication/Plan
-
Discharge today if acute rehab/SNF bed available
Assessment / Plan
Assessment / Plan
Physical Exam
General: Not in acute distress
HEENT: Normocephalic, Moist mucous membranes
Respiratory: CTAB
Cardiac: S1/S2 and Regular Rhythm
GI: Soft, Non Tender, Non Distended, Normal Bowel Sounds
Musculoskeletal: No Cyanosis, No Edema. Severe pain with any movement of the LLE.
Skin: Warm and Dry
Neuro: AAO x 3, Nonfocal/grossly intact, Cranial Nerves Intact and No Sensory Deficits
Psych: Calm
Assessment/Plan
#Left periprosthetic greater trochanteric fracture suspected pathologic due to osteoporosis; recent total hip arthroplasty under the direction of Dr. Baez.
#Hx fracture left hip 2003 with repair
-Nonoperative per Ortho
-Consult Ortho, recommendations appreciated
-Recommend TDWB to LLE with walker. Maintain posterior THPs. PT/OT. Avoid active abduction and passive adduction.
-Pain control Tylenol, Oxycodone, Dilaudid
-Due to severe pain, ortho changed Dilaudid to scheduled PO 2 mg PO Q4H -- appreciate orthopedics
-Monitor for any constipation
-Weight-bear with walker
-PT/OT/case management consult for SNF placement
-SNF placement
-Will need follow-up x-ray in 1 week to rule out fracture displacement.
-ASA 325mg daily for DVT prophylaxis
#Hyponatremia
-Suspected from pain
-Continue PO Fluid Restriction
-Recheck BMP
#HTN�benign
-BP 138/80
-Continue metoprolol succinate 25 mg at bedtime
#HLD
-Continue Crestor 10 mg at bedtime
#Asthma as Child -no acute exacerbation
-No reported inhalers
#Anxiety
-No reported meds
#Osteoporosis
- Gets Yearly Reclast injection is due June 2024
#GERD
-No reported medications
#Headaches
Gets monthly aimovig
Other PMH:
Breast cancer bilateral mastectomy 2012 with reconstructive repair/BRCA gene positive
Dilated aortic root 2.9 cm according to pt
DVT Prophylaxis: Aspirin 325 mg daily
Code Status: Full code
More than 30 minutes spent in discharge including
Final examination of the patient
Summarizing hospital stay
Instructions for continuing care to all relevant caregivers
Preparation of discharge records, prescriptions, and referral forms
Total time spent (in minutes): 39
Anticipated Discharge: Today
Subjective/Interval History
-
Date of Service: May 17, 2024
Patient was seen and examined. She reported severe pain in her left hip that woke her up overnight, improved with intravenous Dilaudid.
Objective Data
-
Labs:
Laboratory Results
05/17/24
11:02
Sodium Pending
Potassium Pending
Chloride Pending
Carbon Dioxide Pending
BUN Pending
Creatinine Pending
Glucose Pending
Calcium Pending
Vital Signs:
Vital Signs
Temp Pulse Resp BP Pulse Ox
97.7 F 61 16 114/64 100
05/17/24 07:03 05/17/24 07:03 05/17/24 07:03 05/17/24 07:03 05/17/24 07:03
I&O
05/16/24 05/17/24 05/18/24
06:59 06:59 06:59
Intake Total 1080 / 1080 960 / 960
Output Total 600 / 600 500 / 500
Balance 480 / 480 460 / 460
--- NOTE | 2024-05-17 11:55 | CM ---
Addendum entered by Hilary Laws 05/17/24 14:08:
[facility] scheduled for 5:00 PM today
Addendum entered by Hilary Laws 05/17/24 13:55:
Met with patient and spouse at the bedside to discuss discharge plan
IMM benefit explained; form signed @ 1320
Plan: discharge to [facility] today via [facility]
Facility can accept patient at 1630 or after
Report # [phone]
6
Original Note:
Plan: discharge to [facility] later today pending lab result
Facility can accept @ 1630
[2024-05-17 13:14] LABS: Blood Urea Nitrogen 18 mg/dl (7-17); Calcium 9.5 mg/dl (8.4-10.2); Carbon Dioxide 24 mmol/L (22-30); Chloride 102 mmol/L (98-107); Estimated Creatinine Clearance 54 ml/min; Glucose 109 mg/dl (70-99); Potassium 4.3 mmol/L (3.5-5.1); Sodium 134 mmol/L (135-145); eGFR > 60.00
--- NOTE | 2024-05-17 14:14 | W.DS.TRANS ---
DC Summary - [employer]
-
Discharge Instructions:
Discharge Diagnosis/Procedures #Left periprosthetic greater trochanteric
fracture suspected pathologic due to
osteoporosis; recent total hip arthroplasty
under the direction of Dr. Baez.
#History of fracture of left hip in 2003 with
repair
#Hyponatremia
#Hypertension
#Hyperlipidemia
#Asthma as Child
#Anxiety
#Osteoporosis
#Gastroesophageal Reflux Disease
#Headaches
#Breast cancer bilateral mastectomy 2012 with
reconstructive repair/BRCA gene positive
#Dilated aortic root 2.9 cm according to patient
HIP X-RAY RESULTS ( PER RADIOLOGIST'S REPORT
)
'IMPRESSION:
1. ACUTE OBLIQUELY ORIENTED NONDISPLACED
FRACTURE of the LEFT GREATER TROCHANTER located
at the site of a cerclage band surrounding the
intertrochanteric proximal femur.
2. Left total hip arthroplasty in place.
3. Severe bilateral facet joint arthrosis at
L4/L5.
4. Sacralization of L5.'
Diet Restrict fluids to 48 oz
Additional Diets On PO fluid restriction due to hyponatremia
Activity Other activity
Additional Activity TDWB to LLE with walker. Maintain posterior THPs
. Avoid active abduction and passive adduction.
Driving Restrictions No driving
Other Services PT,OT
Instructions:
Stand-Alone Forms:
Changes to Home Medications: Yes
Discharge Medications:
DC Medications w/original date entered in [employer]
erenumab-aooe 140 mg/mL subcutaneous auto-injector (Aimovig Autoinjector) 140 mg SC QMONTH migraine 04/20/24
rosuvastatin 10 mg tablet 10 mg PO HS High Cholesterol 04/20/24
aspirin 325 mg tablet 325 mg PO DAILY post-op 04/24/24
metoprolol succinate 25 mg tablet,extended release 24 hr 25 mg PO HS #0 tabs 04/25/24
ibuprofen 200 mg tablet (Advil) 200 mg PO Q6HPRN PRN mild pain 05/14/24
acetaminophen 500 mg tablet (Tylenol Extra Strength) 1,000 mg (2 x 500 mg) PO Q8 #60 tabs 05/17/24
bisacodyl 10 mg rectal suppository 10 mg AR [id number] PRN constipation #12 ea 05/17/24
hydromorphone 2 mg tablet 2 mg PO Q4 #12 tabs 05/17/24
lidocaine 4 % topical patch 1 patch topical DAILY Left Hip Pain #5 ea 05/17/24
oxycodone 5 mg tablet 2.5 mg (1/2 x 5 mg) PO Q4HPRN PRN moderate pain #10 tabs 05/17/24
polyethylene glycol 3350 17 gram oral powder packet (HealthyLax) 17 g PO DAILY #100 ea 05/17/24
sennosides 8.6 mg-docusate sodium 50 mg tablet 1 tab PO BID #60 tabs 05/17/24
Home Medication Changes
Tylenol, Bisacodyl, HealthyLax, Sennosides-Docusate, PRN oxycodone, Lidocaine Patch and Hydromorphone are new medications.
Pending Results: No
Total time spent discharging patient (in min): 39
[2024-05-17 14:29] LABS: COVID-19 Antigen Negative (Negative)
[2024-05-17 14:58] VITALS: BP 132/68
== END 2024-05-17 16:30 | DRG 543 ==
LOC: 2 SOUTH 16:00
PROVIDERS: Clinical Nurse Specialist Family Health; Registered Nurse; ADMITTING PHYSICIAN Hospitalist; CONSULT PHYSICIAN Orthopaedic Surgery; EMERGENCY PHYSICIAN Emergency Medicine; FAMILY PHYSICIAN Nurse Practitioner Family
DX: M80.052A Age-related osteoporosis with current pathological fracture, left femur, initial encounter for fracture (principal); E87.1 Hypo-osmolality and hyponatremia; M97.02XA Periprosthetic fracture around internal prosthetic left hip joint, initial encounter; I77.810 Thoracic aortic ectasia; I10 Essential (primary) hypertension; E78.5 Hyperlipidemia, unspecified; F41.9 Anxiety disorder, unspecified; K21.9 Gastro-esophageal reflux disease without esophagitis; M47.819 Spondylosis without myelopathy or radiculopathy, site unspecified; Q76.49 Other congenital malformations of spine, not associated with scoliosis; R51.9 Headache, unspecified; Z96.642 Presence of left artificial hip joint; Z79.82 Long term (current) use of aspirin; Z79.899 Other long term (current) drug therapy; Z85.3 Personal history of malignant neoplasm of breast; Z90.13 Acquired absence of bilateral breasts and nipples; Z87.09 Personal history of other diseases of the respiratory system; Z88.0 Allergy status to penicillin; Z91.040 Latex allergy status; Z82.49 Family history of ischemic heart disease and other diseases of the circulatory system
CPT/HCPCS: 73502; 80048; 80053; 81003; 85025; 87811; 96374; 96376; 97163; 97167; 97530; 97535; 99285

== ENCOUNTER → 2024-07-12 15:45 | Outpatient (REF) | payer MEDICARE, BC, SELFPAY | LOC: HWRAD 15:45 | PROVIDERS: ATTENDING PHYSICIAN Nurse Practitioner Family | DX: M79.662 Pain in left lower leg (principal) | CPT/HCPCS: 73590 ==

== ENCOUNTER → 2024-09-03 10:00 | Outpatient (REF) | payer MEDICARE, BC, SELFPAY ==
[2024-09-03 11:36] LABS: % Basophils 0.5 % (0-2); % Eosinophils 3.3 % (0-6); % Immature Granulocytes 0.3 % (0-0.5); % Monocytes 7.1 % (1.7-9.3); % Neutrophils 67.8 % (42.2-75.2); Absolute Eosinophils 0.1 10^3/uL (0-0.7); Absolute Lymphocytes 0.8 10^3/uL (1.2-3.4); Absolute Monocytes 0.3 10^3/uL (0.1-0.6); Absolute Neutrophils 2.7 10^3/uL (1.4-6.5); Hematocrit 43.2 % (37.0-47.0); Hemoglobin 13.9 g/dL (12.0-16.0); Mean Corp Hgb Conc. 32.2 g/dL (33.0-37.0); Mean Corpuscular Hgb 29.7 pg (27.0-31.0); Mean Corpuscular Volume 92.3 fL (81.0-99.0); Mean Platelet Volume 9.9 fL (7.4-10.4); Nucleated Red Blood Cells % 0 %; Platelet Count 251 10^3/uL (130-400); Red Blood Cell Count 4.68 10^6/uL (4.20-5.40); Red Cell Dist. Width 13.3 % (11.5-14.5)
[2024-09-03 11:51] LABS: ALT (SGPT) 21 U/L (0-35); AST (SGOT) 32 U/L (14-36); Albumin 4.9 g/dl (3.5-5.0); Alkaline Phosphatase 86 U/L (38-126); Blood Urea Nitrogen 18 mg/dl (7-17); Calcium 9.8 mg/dl (8.4-10.2); Carbon Dioxide 30 mmol/L (22-30); Chloride 101 mmol/L (98-107); Glucose 96 mg/dl (70-99); Potassium 4.5 mmol/L (3.5-5.1); Sodium 140 mmol/L (135-145); Total Bilirubin 0.7 mg/dl (0.2-1.3); Total Protein 7.4 g/dl (6.3-8.2); eGFR > 60.00
[2024-09-03 11:59] LABS: Vitamin D, 25-OH*** 87.5 ng/mL (30-80)
[2024-09-03 12:12] LABS: TSH 2.39 uIU/ml (0.47-4.68)
[2024-09-03 13:19] LABS: Testosterone, Total 11.6 ng/dl
[2024-09-05 15:41] LABS: Adrenocorticotropic Hormone 18.9 pg/mL (7.2-63.3)
[2024-09-05 22:12] LABS: DHEA Sulfate 41 ug/dL (12-154)
[2024-09-06 04:03] LABS: Aldosterone, Serum 10.2 ng/dL
== END ==
LOC: REG 10:00
PROVIDERS: ATTENDING PHYSICIAN Nurse Practitioner Family; FAMILY PHYSICIAN Nurse Practitioner Family
DX: M80.00XA Age-related osteoporosis with current pathological fracture, unspecified site, initial encounter for fracture (principal); D35.02 Benign neoplasm of left adrenal gland; E78.5 Hyperlipidemia, unspecified
CPT/HCPCS: 36415; 80053; 82024; 82088; 82306; 82533; 82627; 83498; 84403; 84443; 85025

== ENCOUNTER → 2024-11-02 09:43 | Outpatient (REF) | payer OTHER, SELFPAY ==
[2024-11-02 11:42] LABS: % Basophils 0.2 % (0-2); % Eosinophils 4.5 % (0-6); % Immature Granulocytes 0.2 % (0-0.5); % Lymphocytes 19.3 % (20.5-51.1); % Monocytes 8.2 % (1.7-9.3); % Neutrophils 67.6 % (42.2-75.2); Absolute Eosinophils 0.2 10^3/uL (0-0.7); Absolute Lymphocytes 0.8 10^3/uL (1.2-3.4); Absolute Monocytes 0.4 10^3/uL (0.1-0.6); Absolute Neutrophils 2.9 10^3/uL (1.4-6.5); Hematocrit 39.4 % (37.0-47.0); Mean Corpuscular Hgb 30.3 pg (27.0-31.0); Mean Corpuscular Volume 91.8 fL (81.0-99.0); Mean Platelet Volume 10.6 fL (7.4-10.4); Nucleated Red Blood Cells % 0 %; Platelet Count 212 10^3/uL (130-400); Red Blood Cell Count 4.29 10^6/uL (4.20-5.40); Red Cell Dist. Width 13.1 % (11.5-14.5); White Blood Cell Count 4.3 10^3/uL (4.8-10.8)
[2024-11-02 11:49] LABS: Urine Albumin Negative (Neg - Trace); Urine Bilirubin Negative (Negative); Urine Character Clear (Clear); Urine Color Yellow; Urine Glucose Negative (Negative); Urine Ketone Negative (Negative); Urine Leukocyte 2+ (Negative); Urine Nitrite Negative (Negative); Urine Occult Blood Negative (Negative); Urine Urobilinogen Negative (Neg - 1+)
[2024-11-02 11:54] LABS: ALT (SGPT) 21 U/L (0-35); AST (SGOT) 34 U/L (14-36); Albumin 4.7 g/dl (3.5-5.0); Alkaline Phosphatase 66 U/L (38-126); Blood Urea Nitrogen 15 mg/dl (7-17); Calcium 9.7 mg/dl (8.4-10.2); Carbon Dioxide 32 mmol/L (22-30); Chloride 101 mmol/L (98-107); Glucose 94 mg/dl (70-99); HDL Cholesterol 89 mg/dl; LDL Cholesterol, Calculated 47 mg/dl; Potassium 4.3 mmol/L (3.5-5.1); Sodium 138 mmol/L (135-145); Total Cholesterol 157 mg/dl (50-199); Total Protein 6.9 g/dl (6.3-8.2); Triglyceride 108 mg/dl (10-149); Very Low Density Lipoprotein 21 mg/dl (0-30); eGFR > 60.00
[2024-11-02 12:18] LABS: Urine Bacteria Few (Negative); Urine Squamous Cell 0-2 /LPF (Few)
[2024-11-02 12:19] LABS: Urine Red Blood Cell 0-2 /HPF (0-2)
[2024-11-02 12:26] LABS: TSH Reflex To Free T4 1.94 uIU/ml (0.47-4.68)
[2024-11-02 12:45] LABS: Vitamin B12 553 pg/ml (239-931)
== END ==
LOC: HWLAB 09:43
PROVIDERS: ATTENDING PHYSICIAN Nurse Practitioner Family
DX: Z00.00 Encounter for general adult medical examination without abnormal findings (principal); I10 Essential (primary) hypertension; F41.1 Generalized anxiety disorder; E78.5 Hyperlipidemia, unspecified; I77.810 Thoracic aortic ectasia; R93.0 Abnormal findings on diagnostic imaging of skull and head, not elsewhere classified; R20.2 Paresthesia of skin; Z85.3 Personal history of malignant neoplasm of breast; M81.0 Age-related osteoporosis without current pathological fracture; R26.89 Other abnormalities of gait and mobility; Z23 Encounter for immunization; R10.9 Unspecified abdominal pain; Z15.01 Genetic susceptibility to malignant neoplasm of breast; Z15.09 Genetic susceptibility to other malignant neoplasm; Z87.81 Personal history of (healed) traumatic fracture; E53.8 Deficiency of other specified B group vitamins
CPT/HCPCS: 36415; 80053; 80061; 81003; 81015; 82607; 84443; 85025

== ENCOUNTER → 2025-03-23 11:10 | Outpatient (REF) | payer OTHER, SELFPAY | LOC: PAVMRI 11:10 | PROVIDERS: ATTENDING PHYSICIAN Physician Assistant Medical; FAMILY PHYSICIAN Nurse Practitioner Family | DX: M25.559 Pain in unspecified hip (principal) | CPT/HCPCS: 73721 ==

== ENCOUNTER → 2025-05-30 11:13 | Outpatient (REF) | payer OTHER, SELFPAY ==
[2025-05-30 16:33] LABS: Ferritin 67.2 ng/ml (11.1-264.0)
== END ==
LOC: HWLAB 11:13
PROVIDERS: ATTENDING PHYSICIAN Registered Nurse Critical Care Medicine; FAMILY PHYSICIAN Nurse Practitioner Family
DX: R79.0 Abnormal level of blood mineral (principal)
CPT/HCPCS: 36415; 82728

== ENCOUNTER → 2025-08-12 10:13 | Outpatient (REF) | payer OTHER, SELFPAY ==
[2025-08-12 12:36] LABS: ALT (SGPT) 21 U/L (0-35); AST (SGOT) 32 U/L (14-36); Albumin 4.5 g/dl (3.5-5.0); Alkaline Phosphatase 58 U/L (38-126); Blood Urea Nitrogen 14 mg/dl (7-17); Calcium 9.8 mg/dl (8.4-10.2); Carbon Dioxide 29 mmol/L (22-30); Chloride 102 mmol/L (98-107); Glucose 105 mg/dl (70-99); Potassium 4.7 mmol/L (3.5-5.1); Sodium 135 mmol/L (135-145); Total Protein 6.9 g/dl (6.3-8.2); eGFR > 60.00
[2025-08-12 12:55] LABS: Vitamin D, 25-OH*** 69.7 ng/mL (30-80)
[2025-08-12 13:08] LABS: Cortisol, Random 4.4 ug/dl
== END ==
LOC: HWLAB 10:13
PROVIDERS: ATTENDING PHYSICIAN Nurse Practitioner Family; FAMILY PHYSICIAN Nurse Practitioner Family
DX: M81.0 Age-related osteoporosis without current pathological fracture (principal); D35.02 Benign neoplasm of left adrenal gland
CPT/HCPCS: 36415; 80053; 82088; 82306; 82533; 83835; 84244

== ENCOUNTER → 2025-08-26 10:33 | Outpatient (REF) | payer OTHER, SELFPAY | LOC: RAD 10:33 | PROVIDERS: ATTENDING PHYSICIAN Nurse Practitioner Family | DX: D35.2 Benign neoplasm of pituitary gland (principal) | CPT/HCPCS: 74170; Q9967 ==